=== PATIENT | male | born 1980 | race Caucasian/White ===

== ENCOUNTER 2018-11-04 00:45 | Emergency (ER) | payer BC, OTHER ==
[2018-11-04] MEDS ORDERED: LIDOCAINE 1% 20 ML MDV ONE (01:28)
[2018-11-04] MEDS ORDERED: LIDOCAINE 1% MPF 5 ML VIAL ONE (01:29)
--- NOTE | 2018-11-04 01:56 | EDPHYS ---
Physician Documentation [facility] Name: Blanco Maier Age: 37 yrs Sex: Male : 1980 Arrival Date: 11/04/2018 Time: 00:49 Bed 5 Private MD: ED Physician Jj Santiago HPI: 11/04 01:52 This 37 yrs old Male presents to ER via Ambulatory with complaints of Fall pm1 Injury, Laceration To Head. 01:52 Details of fall: The patient fell from an upright position, while walking. Onset: The pm1 symptoms/episode began/occurred just prior to arrival. Associated injuries: The patient sustained injury to the head, laceration. The patient has not experienced similar symptoms in the past. The patient has not recently seen a physician. Patient was walking into his garage and tripped on lip of garage ilia. resulting in laceration to left side of forehead. No LOC, headache, or neck pain. Historical: - Allergies: 00:54 No Known Allergies; la1 - Home Meds: 00:54 None [Active]; la1 - PMHx: 00:54 None; la1 - PSHx: 00:54 None; la1 - Immunization history:: Adult Immunizations up to date. - Social history:: Smoking status: Patient/guardian denies using tobacco. - Ebola Screening: : No symptoms or risks identified at this time. ROS: 01:52 Constitutional: Negative for fever, chills, and weight loss, Eyes: Negative for injury, pm1 pain, redness, and discharge, ENT: Negative for injury, pain, and discharge, Neck: Negative for injury, pain, and swelling, Cardiovascular: Negative for chest pain, palpitations, and edema, Respiratory: Negative for shortness of breath, cough, wheezing, and pleuritic chest pain, Abdomen/GI: Negative for abdominal pain, nausea, vomiting, diarrhea, and constipation, Back: Negative for injury and pain, MS/Extremity: Negative for injury and deformity. 01:52 Neuro: Negative for headache, weakness, numbness, tingling, and seizure. 01:52 Skin: Positive for laceration(s), of the forehead. Exam: 01:52 Constitutional: This is a well developed, well nourished patient who is awake, alert, pm1 and in no acute distress. 01:52 Eyes: Pupils equal round and reactive to light, extra-ocular motions intact. Lids and lashes normal. Conjunctiva and sclera are non-icteric and not injected. Cornea within normal limits. Periorbital areas with no swelling, redness, or edema. ENT: Nares patent. No nasal discharge, no septal abnormalities noted. Tympanic membranes are normal and external auditory canals are clear. Oropharynx with no redness, swelling, or masses, exudates, or evidence of obstruction, uvula midline. Mucous membranes moist. Neck: Trachea midline, no thyromegaly or masses palpated, and no cervical lymphadenopathy. Supple, full range of motion without nuchal rigidity, or vertebral point tenderness. No Meningismus. Chest/axilla: Normal chest wall appearance and motion. Nontender with no deformity. No lesions are appreciated. Cardiovascular: Regular rate and rhythm with a normal S1 and S2. No gallops, murmurs, or rubs. Normal PMI, no JVD. No pulse deficits. Respiratory: Lungs have equal breath sounds bilaterally, clear to auscultation and percussion. No rales, rhonchi or wheezes noted. No increased work of breathing, no retractions or nasal flaring. MS/ Extremity: Pulses equal, no cyanosis. Neurovascular intact. Full, normal range of motion. 01:52 Head/face: Noted is no obvious of injury or deformity except abrasion(s), that are mild, of the forehead, a laceration(s), that is linear. 01:52 Neuro: Orientation: is normal, Motor: is normal, moves all fours, Gait: is steady, at a normal pace, without difficulty. Vital Signs: 00:55 BP 122 / 80; Pulse 62; Resp 16; Temp 97.4; Pulse Ox 98% on R/A; Weight 86.18 kg; Height la1 5 ft. 11 in. (180.34 cm); 00:55 Body Mass Index 26.50 (86.18 kg, 180.34 cm) la1 Laceration: 01:52 Wound Repair of 2cm ( 0.8in ) subcutaneous laceration to forehead. Linear shaped.. pm1 Distal neuro/vascular/tendon intact. Anesthesia: Local anesthetic administered with 2 mls of 1% lidocaine. Wound prep: Extensive cleansing with hibiclenz by nj, Wound irrigation with saline by me, Wound explored extensively, Copious irrigation. Skin closed with 6 6-0 Prolene using simple sutures and sterile technique. Dressed with Neosporin, 4x4's. Patient tolerated well. MDM: 01:08 Patient medically screened. pm1 01:52 Data reviewed: vital signs. Data interpreted: Pulse oximetry: on room air is 98 %. pm1 Interpretation: normal. Counseling: I had a detailed discussion with the patient and/or guardian regarding: the historical points, exam findings, and any diagnostic results supporting the discharge/admit diagnosis, the need for outpatient follow up, to return to the emergency department if symptoms worsen or persist or if there are any questions or concerns that arise at home. 11/04 01:11 Order name: Prolene, Sutures; Complete Time: pm1 11/04 01:11 Order name: Dressing - Wound; Complete Time: pm1 11/04 01:11 Order name: Gloves, Sterile; Complete Time: pm1 11/04 01:11 Order name: Setup Suture Tray; Complete Time: pm1 Administered Medications: 01:28 Drug: Lidocaine (1 %) 5 ml Volume: 5 ml; Route: Infiltration; lp1 01:28 Not Given (Patient states up to date): Tetanus-Diphtheria Toxoid Adult 0.5 ml IM once lp1 Disposition: 04:21 Co-signature as Attending Physician, Jj Santiago MD. Disposition: 11/04/18 01:55 Discharged to Home. Impression: Laceration without foreign body of unspecified part of head, Superficial injury of head. - Condition is Stable. - Discharge Instructions: Head Injury, Adult, Facial Laceration. - Medication Reconciliation Form, Thank You Letter, Antibiotic Education, Prescription Opioid Use form. - Follow up: Private Physician; When: 4 - 5 days; Reason: Recheck today's complaints, Continuance of care, Staple/Suture removal, Re-evaluation by your physician. Follow up: Emergency Department; When: As needed; Reason: Worsening of condition. - Problem is new. - Symptoms have improved. Signatures: Nancy Blanca RN RN lp1 Jmi Sanches RN RN la1 Presley Briseno, SENIOR MANUFACTURING TEST ENGINEER SENIOR MANUFACTURING TEST ENGINEER pm1 Jj Santiago MD MD gs Corrections: (The following items were deleted from the chart) 02:03 01:55 11/04/2018 01:55 Discharged to Home. Impression: Laceration without foreign body lp1 of unspecified part of head; Superficial injury of head. Condition is Stable. Forms are Medication Reconciliation Form, Thank You Letter, Antibiotic Education, Prescription Opioid Use. Follow up: Private Physician; When: 4 - 5 days; Reason: Recheck today's complaints, Continuance of care, Staple/Suture removal, Re-evaluation by your physician. Follow up: Emergency Department; When: As needed; Reason: Worsening of condition. Problem is new. Symptoms have improved. pm1
--- NOTE | 2018-11-04 01:56 | ER ---
Nurse's Notes [facility] Name: Blanco Maier Age: 37 yrs Sex: Male : 1980 Arrival Date: 11/04/2018 Time: 00:49 Bed 5 Private MD: Diagnosis: Laceration without foreign body of unspecified part of head;Superficial injury of head Presentation: 11/04 00:53 Presenting complaint: Patient states: I fell about an hour ago and got a cut above my la1 left eye. Denies LOC. Transition of care: patient was not received from another setting of care. Onset of symptoms was November 04, 2018. Risk Assessment: Do you want to hurt yourself or someone else? Patient reports no desire to harm self or others. Initial Sepsis Screen: Does the patient meet any 2 criteria? No. Patient's initial sepsis screen is negative. Does the patient have a suspected source of infection? No. Patient's initial sepsis screen is negative. Care prior to arrival: None. 00:53 Method Of Arrival: Ambulatory la1 00:53 Acuity: CHARLIE 4 la1 Historical: - Allergies: 00:54 No Known Allergies; la1 - Home Meds: 00:54 None [Active]; la1 - PMHx: 00:54 None; la1 - PSHx: 00:54 None; la1 - Immunization history:: Adult Immunizations up to date. - Social history:: Smoking status: Patient/guardian denies using tobacco. - Ebola Screening: : No symptoms or risks identified at this time. Screenin:07 Abuse screen: Denies threats or abuse. Denies injuries from another. Nutritional lp1 screening: No deficits noted. Tuberculosis screening: No symptoms or risk factors identified. Fall Risk None identified. Assessment: 01:05 General: Appears in no apparent distress. Behavior is appropriate for age. Pain: lp1 Complains of pain in Above left eyebrow. Neuro: Level of Consciousness is awake, alert, obeys commands, Oriented to person, place, time, situation, Gait is steady. Cardiovascular: Patient's skin is warm and dry. Respiratory: Respiratory effort is even, unlabored. GI: No signs and/or symptoms were reported involving the gastrointestinal system. : No signs and/or symptoms were reported regarding the genitourinary system. EENT: No signs and/or symptoms were reported regarding the EENT system. Derm: Wound noted Wound is Laceration above left eyebrow, not actively bleeding. Musculoskeletal: No deficits noted. 01:50 Reassessment: Sutures in place, provider discussed care of sutures. lp1 Vital Signs: 00:55 BP 122 / 80; Pulse 62; Resp 16; Temp 97.4; Pulse Ox 98% on R/A; Weight 86.18 kg; Height la1 5 ft. 11 in. (180.34 cm); 00:55 Body Mass Index 26.50 (86.18 kg, 180.34 cm) la1 ED Course: 00:49 Patient arrived in ED. do 00:54 Triage completed. la1 00:54 Arm band placed on left wrist. la1 01:01 Presley Briseno NP is PHCP. pm1 01:01 Jj Santiago MD is Attending Physician. pm1 01:05 Nancy Blanca RN is Primary Nurse. lp1 01:07 Wound care: to laceration located on above left eyebrow was irrigated with normal lp1 saline. 01:08 Patient has correct armband on for positive identification. lp1 01:31 Assist provider with laceration repair on above left eyebrow that was between 2.6 to lp1 7.5 cm using sutures. Set up tray. Performed by Presley Briseno NP. 01:32 Patient did not have IV access during this emergency room visit. lp1 Administered Medications: 01:28 Drug: Lidocaine (1 %) 5 ml Volume: 5 ml; Route: Infiltration; lp1 01:28 Not Given (Patient states up to date): Tetanus-Diphtheria Toxoid Adult 0.5 ml IM once lp1 Outcome: 01:55 Discharge ordered by . pm1 02:02 Discharged to home ambulatory, with friend. lp1 02:02 Condition: good 02:02 Discharge instructions given to patient, Instructed on discharge instructions, follow up and referral plans. wound care, Demonstrated understanding of instructions, follow-up care, wound care. 02:03 Patient left the ED. lp1 Signatures: Nancy Blanca RN RN lp1 Jim Sanches RN RN la1 Janiya Michele Patrick, NP TOLL SETTLEMENT CLERK pm1
== END 2018-11-04 02:03 | disposition home or self-care (01) ==
LOC: ER 00:45
PROC: 0JQ10ZZ Repair Face Subcutaneous Tissue and Fascia, Open Approach (ICD-10-PCS; principal; 2018-11-04)
DX: S01.81XA Laceration without foreign body of other part of head, initial encounter (principal); S00.90XA Unspecified superficial injury of unspecified part of head, initial encounter; W01.0XXA Fall on same level from slipping, tripping and stumbling without subsequent striking against object, initial encounter; Y93.01 Activity, walking, marching and hiking; Y92.008 Other place in unspecified non-institutional (private) residence as the place of occurrence of the external cause
CPT/HCPCS: 99284